=== PATIENT | male | born 2000 | race American Indian/Alaskan Native ===

== ENCOUNTER 2019-09-08 21:38 | Emergency (ER) | payer OTHER ==
[2019-09-09] MEDS ORDERED: IBUPROFEN 600 MG TAB PO ONE (00:12)
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
[2019-09-09 01:00] VITALS: BP 118/68
[2019-09-09] MEDS ORDERED: MUPIROCIN 2% OINT 22 GM TP ONE (01:00)
== END 2019-09-09 01:00 | disposition home or self-care (01) ==
LOC: ED 21:38
DX: S39.012A Strain of muscle, fascia and tendon of lower back, initial encounter (principal); S50.312A Abrasion of left elbow, initial encounter; V89.2XXA Person injured in unspecified motor-vehicle accident, traffic, initial encounter; Y93.89 Activity, other specified; Y92.410 Unspecified street and highway as the place of occurrence of the external cause; Y99.8 Other external cause status